=== PATIENT | male | born 1990 | race Caucasian/White ===

== ENCOUNTER 2018-06-04 10:46 | Emergency (ER) | payer OTHER ==
[2018-06-04] MEDS: HYDROCODONE/APAP (5/325) TAB PO (11:38)
== END 2018-06-04 14:04 | disposition home or self-care (01) ==
LOC: FTE 10:46
DX: S93.401A Sprain of unspecified ligament of right ankle, initial encounter (principal); V13.4XXA Pedal cycle driver injured in collision with car, pick-up truck or van in traffic accident, initial encounter
CPT/HCPCS: 29515; 73564; 73610-RT; 74018; 76705; 99284-25